=== PATIENT | female | born 1990 | race African-American/Black ===

== ENCOUNTER 2018-01-06 09:04 | Emergency (ER) | payer MEDICAID ==
[~2018-01-06] VITALS: Ht 162.6 cm; Wt 66.0 kg
[~2018-01-06 09:04] MED LIST: PREN-88 PO
[2018-01-06 15:37] VITALS: BP 132/88
== END 2018-01-06 15:40 | disposition home or self-care (01) ==
LOC: ER 10:18
DX: G44.209 Tension-type headache, unspecified, not intractable (principal); G44.309 Post-traumatic headache, unspecified, not intractable; S09.90XA Unspecified injury of head, initial encounter; V49.9XXA Car occupant (driver) (passenger) injured in unspecified traffic accident, initial encounter; Y93.89 Activity, other specified; Y92.410 Unspecified street and highway as the place of occurrence of the external cause
CPT/HCPCS: 70450; 81025; 99284

== ENCOUNTER 2018-06-18 10:45 | Emergency (ER) | payer MEDICAID ==
[~2018-06-18] VITALS: Ht 162.6 cm; Wt 63.0 kg
[2018-06-18] MEDS ORDERED: KETOROLAC 60MG/2ML VIAL IM STA (13:32)
[2018-06-18] MEDS ORDERED: DIPHENHYDRAMINE 50MG/ML VIAL IM ONE (13:45)
[2018-06-18 13:48] VITALS: BP 109/72
== END 2018-06-18 15:01 | disposition home or self-care (01) ==
LOC: ER 11:42
DX: S80.861A Insect bite (nonvenomous), right lower leg, initial encounter (principal); S80.862A Insect bite (nonvenomous), left lower leg, initial encounter; L03.116 Cellulitis of left lower limb; L03.115 Cellulitis of right lower limb; W57.XXXA Bitten or stung by nonvenomous insect and other nonvenomous arthropods, initial encounter; Y93.89 Activity, other specified; Y92.89 Other specified places as the place of occurrence of the external cause
CPT/HCPCS: 81025; 96372; 99284; J1200; J1885; Z7610

== ENCOUNTER 2023-01-21 19:24 | Emergency (ER) | payer SELFPAY ==
[~2023-01-21] VITALS: Ht 160 cm; Wt 70.7 kg
[2023-01-21 19:29] VITALS: BP 116/64
== END 2023-01-22 01:31 | disposition left against medical advice (07) ==
LOC: ER 21:10
DX: Z53.21 Procedure and treatment not carried out due to patient leaving prior to being seen by health care provider (principal)
CPT/HCPCS: 99281